=== PATIENT | female | born 1970 ===

== ENCOUNTER 2017-12-28 12:15 | Inpatient (IN) | payer OTHER ==
[~2017-12-28] VITALS: Ht 175.3 cm; Wt 123.8 kg
[2017-12-28] MEDS ORDERED: NORVASC5 MG PO (15:15)
[2017-12-28] MEDS ORDERED: ADULT LOW DOSE81 M1 PO (15:16)
[2017-12-28] MEDS ORDERED: FUSION PLUS CA1 EACH PO (15:16)
== END 2018-01-08 10:24 | disposition home or self-care (01) | DRG 743 ==
LOC: O/R 01-05 06:08 → OB/GYN 01-05 06:08 → O/R 01-05 07:00 → OB/GYN 01-05 14:18
PROVIDERS: Obstetrics & Gynecology
PROC: 0UT90ZZ Resection of Uterus, Open Approach (ICD-10-PCS; principal; 2018-01-05 07:00)
DX: D25.1 Intramural leiomyoma of uterus (principal); D25.0 Submucous leiomyoma of uterus; D25.2 Subserosal leiomyoma of uterus; N80.0 Endometriosis of uterus; N93.8 Other specified abnormal uterine and vaginal bleeding